=== PATIENT | female | born 1995 | race Caucasian/White ===

== ENCOUNTER → 2021-02-12 | Outpatient (CLI) | payer BC ==
--- NOTE | 2021-02-12 15:13 | Diagnostic Imaging Report ---
EXAMINATION: Pelvic Ultrasound, Complete. INDICATION: Abnormal uterine bleeding TECHNIQUE: Transabdominal technique was employed. COMPARISON: None. FINDINGS: Uterus: The uterus is anteverted and in position and measures 9.2 x 2.7 x 4.9 cm transabdominally. The myometrium is homogeneous without fibroids. Endometrium: An IUD is present within the uterine fundus. This appears evaluation of the endometrium. Adnexa: Right ovary measures 4.7 x 2.4 x 2.2 cm and left ovary measures 4.3 x 2.0 x 3.9 cm. Ovaries have a normal sonographic appearance. There is no adnexal mass. Normal Doppler flow seen within the bilateral ovaries. There is no free fluid in the pelvis. IMPRESSION: 1. Unremarkable pelvic ultrasound. 2. Appropriate position of IUD within the uterine fundus. Dictated by: Dictated on workstation # [id number]
== END ==
LOC: RAD 14:30
PROVIDERS: ATTEND Obstetrics & Gynecology
DX: N93.9 Abnormal uterine and vaginal bleeding, unspecified (principal); Z97.5 Presence of (intrauterine) contraceptive device
CPT/HCPCS: 76856